=== PATIENT | female | born 1940 | race Caucasian/White ===

== ENCOUNTER 2017-05-03 21:11 | Emergency (ER) | payer MEDICARE, OTHER ==
[~2017-05-03 21:11] MED LIST: ACETAMINOPHEN325 MG PO; AMPICILLIN TRI500 MG PO; ASPIRIN325 MG PO; DEPAKOTE ER250 MG PO; FLORANEX TABLE1 EACH PO; FUROSEMIDE40 MG PO; K-DUR20 MEQ PO; LACTINEX1 EACH PO; MIRTAZAPINE30 MG PO; MLYLANTA/MAALOX30 ML PO; NAMZARIC 21 MG1 EACH PO; PRINIVIL20 MG PO; RESTORIL15 MG PO; SYNTHROID100 MCG PO; TOPROL XL 25MG25 MG PO; TYLENOL650 MG PR; ZOLOFT100 M1 PO; ZYPREXA 5MG TABL5 MG PO
[2017-05-03 22:32] LABS: BASOPHIL 0.3 % (0-2); EOSINOPHIL 1.3 % (0-7); HCT 36.8 % (37.0-47.0); HGB 11.6 g/dl (12.5-16.0); LYMPHOCYTE 12.3 % (15-48); MCH 29.2 pg (25.0-31.0); MCHC 31.5 g/dL (32.0-36.0); MCV 92.7 fL (78.0-100.0); MPV 9.9 fL (6.0-9.5); NEUTROPHIL 79.1 % (41-80); PLT 479 K/uL (150-400); RBC 3.97 M/uL (4.20-5.40); RDW 14.9 % (11.5-14.0)
[2017-05-03 22:35] LABS: INR 1.21 (0.9-1.2); PROTHROMBIN TIME 14.9 SECONDS (11.7-14.0); WBC 16.5 K/uL (4.0-10.5)
[2017-05-03 22:36] LABS: PTT 31.7 SECONDS (23.2-31.4)
[2017-05-03 22:38] LABS: BILIRUBIN NEGATIVE (NEGATIVE); BLOOD 3+ Ery/uL (NEGATIVE); CLARITY CLEAR (CLEAR); COLOR YELLOW (YELLOW); GLUCOSE (U) NORMAL (NORMAL); KETONE (U) NEGATIVE (NEGATIVE); LEUKOCYTES 3+ Leu/uL (NEGATIVE); NITRITE POSITIVE (NEGATIVE); PROTEIN NEGATIVE (NEGATIVE); SPECIFIC GRAVITY 1.015 (1.001-1.030); UROBILINOGEN 0.2 mg/dL (0.2-1.0); pH 5.5 (5.0-9.0)
[2017-05-03 22:46] LABS: ALBUMIN 2.9 g/dL (3.4-4.8); BILIRUBIN - TOTAL 0.3 mg/dL (0.1-1.0); CREATININE 1.2 mg/dL (0.5-1.0); GLOBULIN (CALCULATION) 3.4 g/dL (2.2-4.2); LACTIC ACID 1.4 mmol/L (0.5-2.2); POTASSIUM 4.8 mmol/L (3.5-5.1); TOTAL PROTEIN 6.3 g/dL (6.4-8.3)
[2017-05-03 22:51] LABS: AMORPHOUS URATES CRYSTALS TRACE; BACTERIA 2+; MUCOUS MODERATE; URINARY RBC 20-50; URINARY WBC TNTC
== END 2017-05-04 02:53 | disposition other institution (70) ==
LOC: FER 21:11
PROVIDERS: Emergency Medicine
DX: I21.4 Non-ST elevation (NSTEMI) myocardial infarction (principal); N39.0 Urinary tract infection, site not specified; G30.9 Alzheimer's disease, unspecified; F02.80 Dementia in other diseases classified elsewhere, unspecified severity, without behavioral disturbance, psychotic disturbance, mood disturbance, and anxiety; N18.9 Chronic kidney disease, unspecified; Z86.73 Personal history of transient ischemic attack (TIA), and cerebral infarction without residual deficits; Z86.14 Personal history of Methicillin resistant Staphylococcus aureus infection; Z79.82 Long term (current) use of aspirin; Z79.899 Other long term (current) drug therapy
CPT/HCPCS: 36415; 71010; 80053; 81001; 83605; 84484; 85025; 85610; 85730; 87040; 87088; 93005